=== PATIENT | female | born 1965 | race Caucasian/White ===

== ENCOUNTER → 2024-11-20 | Outpatient (CLI) | payer OTHER, SELFPAY ==
[2024-11-20 11:09] LABS: Alanine Aminotransferase 14 U/L (10-49); Albumin/Globulin Ratio 1.9 (1.2-2.2); Alkaline Phosphatase 61 U/L (46-116); Anion Gap 9 (7-16); Aspartate Amino Transferase 14 U/L (0-34); BUN/Creatinine Ratio 23 Ratio (12-20); Bilirubin,Total 0.6 mg/dL (0.3-1.2); Blood Urea Nitrogen 27 mg/dL (9-23); Calcium 10.4 mg/dL (8.3-10.6); Calcium (Corrected) 10.4 mg/dL (8.5-10.1); Carbon Dioxide 29.1 mMol/L (20.0-31.0); Cardiac Risk Estimate 2.6 RATIO (3.7-5.6); Chloride 100 mMol/L (98-107); Cholesterol 201 mg/dL (132-200); Creatinine (Component) 1.2 mg/dL (0.6-1.3); Globulin 2.6 gm/dL (2.3-3.5); Glucose 94 mg/dL (74-106); HDL Cholesterol 78 mg/dL (40-60); LDL Cholesterol,Calculated 103 mg/dL (0-130); Osmolality,Calculated 280 (275-295); Potassium 3.3 mMol/L (3.4-5.1); Sodium 138 mMol/L (136-145); Total Protein 7.6 gm/dL (5.7-8.2); Triglycerides 99 mg/dL (30-150); eGFR 53 See Note
[2024-11-20 11:34] LABS: Thyroid Stimulating Hormone 0.89 uIU/mL (0.55-4.78)
== END | disposition home or self-care (01) ==
PROVIDERS: PCP Internal Medicine; Referring Provider Internal Medicine; Visit Provider Internal Medicine
DX: I10 Essential (primary) hypertension (principal); E78.5 Hyperlipidemia, unspecified; E03.9 Hypothyroidism, unspecified
CPT/HCPCS: 36415; 80053; 80061; 84443

== ENCOUNTER → 2025-05-23 | Outpatient (CLI) | payer OTHER, SELFPAY ==
--- NOTE | 2025-05-23 10:30 | XR_ITS ---
Examination: Breast ultrasound, unilateral, left complete Date and time of exam: May 23, 2025 1028 hours INDICATIONS: Ultrasound left breast April 08, 2023 1:00 nodule 7 x 6 mm Technique: Real-time soares scale ultrasonographic imaging performed left breast including all 4 quadrants as well as nipple retroareolar and axillary region. Findings: No cystic or solid mass IMPRESSION: BI-RADS Category 1: Negative study
--- NOTE | 2025-05-23 11:15 | XR_ITS ---
Examination: Diagnostic digital mammography, bilateral Computer aided detection 3-D breast Tomosynthesis, bilateral Date and time of exam: May 23, 2025 1038 hours Compared to mammograms dating to November 12, 2013 INDICATIONS: History, family history breast cancer Technique: Nonmagnified MLO, CC views of the breasts to been obtained, reconstructed from 3-D Tomosynthesis images. R2 computer aided detection program utilized for evaluation of suspicious masses and/or abnormal calcifications. 3-D Tomosynthesis images obtained. Findings: Scattered areas of fibroglandular density Intact implants Benign calcifications. No interval suspicious masses Impression: BI-RADS Category 2: Benign findings Recommend yearly follow-up mammography.
== END | disposition home or self-care (01) ==
PROVIDERS: PCP Nurse Practitioner Family; Referring Provider Nurse Practitioner Family; Visit Provider Nurse Practitioner Family
DX: R92.323 Mammographic fibroglandular density, bilateral breasts (principal); R92.1 Mammographic calcification found on diagnostic imaging of breast; Z98.82 Breast implant status
CPT/HCPCS: 76641; 77062; 77066; G0279